=== PATIENT | male | born 1960 | race Caucasian/White ===

== ENCOUNTER 2016-10-13 16:55 | Emergency (ER) | payer OTHER ==
[~2016-10-13 16:55] MED LIST: HYDROmorphONE/DILAUDID 1 MG/ML SYR IVP ONE
[2016-10-13] MEDS ORDERED: ONDANSETRON 4 MG/2 ML VIAL ONE (17:29)
[2016-10-13] MEDS ORDERED: HYDROmorphONE/DILAUDID 1 MG/ML SYR ONE (17:29)
[2016-10-13] MEDS ORDERED: NS 1,000 ML IV ONE (17:34)
[2016-10-13] MEDS ORDERED: ONDANSETRON 4 MG/2 ML VIAL IVP ONE (17:34)
[2016-10-13] MEDS ORDERED: HYDROmorphONE/DILAUDID 1 MG/ML SYR IVP ONE ×2 (17:37→18:36)
[2016-10-13] MEDS ORDERED: KETOROLAC 30 MG/1 ML SDV IVP ONE (17:37)
[2016-10-13 17:39] LABS: % IMMATURE GRANULYOCYTES 0.3 % (0.0-1.1); ABSOLUTE IMMATURE GRANULOCYTES 0.03 10^3/uL (0.00-0.10); ADD DIFF? NO; ADD MORPH? NO; ADD SCAN? NO; ATYPICAL LYMPHOCYTE FLAG 10 (0-99); FRAGMENT RBC FLAG 0 (0-99); HEMATOCRIT 49.4 % (40.0-51.0); HEMOGLOBIN 17.3 g/dL (13.7-17.5); LEFT SHIFT FLG 0 (0-99); LIPEMIA HEMOLYSIS FLAG 90 (0-99); MEAN CELL HEMOGLOBIN 28.9 pg (27.9-34.1); MEAN CELL VOLUME 82.6 fL (81.5-99.8); MEAN PLATELET VOLUME 10.8 fL (8.7-11.7); PLATELET CLUMPS FLAG 0 (0-99); PLATELET COUNT 215 10^3/uL (150-400); RED BLOOD CELL COUNT 5.98 10^6/uL (4.40-6.38); RED CELL DISTRIBUTION WIDTH 11.6 % (11.5-15.2)
--- NOTE | 2016-10-13 17:39 | EDPHY ---
H & P Stated Complaint: right flank/abd pain - Personal History Current Tetanus Diphtheria and Acellular Pertussis (TDAP): Yes - Medical/Surgical History Hx Asthma: No Hx Chronic Respiratory Disease: No Hx Diabetes: No Hx Cardiac Disease: No Hx Renal Disease: No Hx Cirrhosis: No Hx Alcoholism: No Hx HIV/AIDS: No Hx Splenectomy or Spleen Trauma: No Other PMH: none - Social History Smoking Status: Never smoked Time Seen by Provider: 10/13/16 17:34 HPI/ROS: CHIEF COMPLAINT: "I think I have a kidney stone" HISTORY OF PRESENT ILLNESS: 56-year-old male with my prior history of nephrolithiasis all of which passed spontaneously complaining of sudden, sharp stabbing pain approximately 1 hour prior to arrival feeling similar to nephrolithiasis. No urinary abnormality. No testicular pain. No trauma. No vomiting. has previously seen Urology Dr. Beatriz Meza. REVIEW OF SYSTEMS: A ten point review of systems was performed and is negative with the exception of the items mentioned in the HPI PAST MEDICAL & SURGICAL HISTORY: Nephrolithiasis SOCIAL HISTORY:nonsmoker PHYSICAL EXAM (Prior to examination, patient consented to physical exam, hands were washed and my usual and customary physical exam procedures followed) 1) GENERAL: Well-developed, well-nourished, alert and oriented. Appears uncomfortable, having difficulty sitting still 2) HEAD: Normocephalic, atraumatic 3) HEENT: Pupils equal, round, reactive to light bilaterally. Sclera anicteric. 4) NECK: Full range of motion, no meningeal signs. 5) LUNGS: Clear auscultation bilaterally, no wheezes, no rhonchi, no retractions. 6) HEART: Regular rate and rhythm, no murmur, no heave, no gallop. 7) ABDOMEN: No guarding, no rebound, no focal tenderness, negative McBurney's, negative Power's, negative Rovsing's, negative peritoneal sign, 8) MUSCULOSKELETAL: Moving all extremities, no focal areas of tenderness, no obvious trauma. No peripheral edema or discoloration. 9) BACK: No CVA tenderness. 10) SKIN: No rash, no petechiae. 11) Psychiatric: Patient is oriented X 3, there is no agitation. DIFFERENTIAL DIAGNOSIS: [ in no particular include but limited to nephrolithiasis, pyelonephritis, appendicitis (Saw Schultz) Constitutional: Initial Vital Signs Temperature (C) 36.3 C 10/13/16 17:01 Heart Rate 77 10/13/16 17:01 Respiratory Rate 16 10/13/16 17:01 Blood Pressure 167/123 H 10/13/16 17:01 O2 Sat (%) 97 10/13/16 17:01 O2 Delivery Mode Room Air Allergies/Adverse Reactions: bacitracin [From Neosporin] Allergy (Verified 09/29/11 12:43) bacitracin zinc [From Neosporin] Allergy (Verified 09/29/11 12:43) benzalkonium chloride [From Neosporin] Allergy (Verified 09/29/11 12:43) gramicidin D [From Neosporin] Allergy (Verified 09/29/11 12:43) neomycin sulfate [From Neosporin] Allergy (Verified 09/29/11 12:43) polymyxin B [From Neosporin] Allergy (Verified 09/29/11 12:43) polymyxin B sulfate [From Neosporin] Allergy (Verified 09/29/11 12:43) Home Medications: Medication Instructions Recorded ZOLPIDEM TARTRATE [AMBIEN CR] 09/29/11 Celebrex 10/13/16 Hydrocodone/APAP 5/325 [[employer] 1 tab PO Q6 PRN #15 tab 10/13/16 5/325 (RX)] Ondansetron Odt [Zofran Odt] 4 mg PO Q4PRN PRN #10 tab 10/13/16 Tamsulosin HCl [Flomax] 0.4 mg PO DAILY #7 cap 10/13/16 Medical Decision Making - Diagnostics Imaging: Discussed imaging studies w/ joint cutter Radiologist - Diagnostics Imaging Results: Imaging Impressions Abdomen/Pelvis CT 10/13/16 17:37 Impression: 1. 2 mm calculus at the right UVJ with mild right-sided hydronephrosis. 2. 2 mm nonobstructive calculus mid to lower left kidney. Findings discussed with aSw Shcultz PAC at 18:25 hour, 10/13/2016. Attention: This CT examination is specifically designed to evaluate patients who are clinically suspected of having acute obstructive uropathy. This examination does not use radiographic contrast, and as such, provides only a limited evaluation of the abdomen, pelvis and retroperitoneum. If there is further clinical suspicion for pathological conditions other than obstructive uropathy, a complete CT evaluation of the abdomen and pelvis utilizing intravenous, oral, and rectal contrast should be considered. Images reviewed by myself (Saw Schultz) ED Course/Re-evaluation: 6:34 p.m.: Re-evaluation. Discussed his imaging results. His pain is returning. Will administer further analgesia and reassess His pain is controlled. Have offered admission however he thinks he can be discharged. Plan will be follow up with his urologist Dr. Beatriz Meza. (Saw Schultz) The patient was evaluated and managed by the physician's assistant chief nursing officer. My cosignature indicates that I reviewed the chart and I agree with the findings and plan of care as documented. I am the secondary supervising physician. ( Rose Marie Renee) - Data Points Laboratory Results: Laboratory Results 10/13/16 17:30 10/13/16 17:30 10/13/16 10/13/16 10/13/16 17:30 17:30 17:05 WBC 10.79 10^3/uL H 10^3/uL (3.80-9.50) RBC 5.98 10^6/uL 10^6/uL (4.40-6.38) Hgb 17.3 g/dL g/dL (13.7-17.5) Hct 49.4 % % (40.0-51.0) MCV 82.6 fL fL (81.5-99.8) MCH 28.9 pg pg (27.9-34.1) MCHC 35.0 g/dL g/dL (32.4-36.7) RDW 11.6 % % (11.5-15.2) Plt Count 215 10^3/uL 10^3/uL (150-400) MPV 10.8 fL fL (8.7-11.7) Neut % (Auto) 65.6 % % (39.3-74.2) Lymph % (Auto) 24.2 % % (15.0-45.0) Porter % (Auto) 7.5 % % (4.5-13.0) Eos % (Auto) 1.6 % % (0.6-7.6) Baso % (Auto) 0.8 % % (0.3-1.7) Nucleat RBC Rel Count 0.0 % % (0.0-0.2) Absolute Neuts (auto) 7.08 10^3/uL H 10^3/uL (1.70-6.50) Absolute Lymphs (auto) 2.61 10^3/uL 10^3/uL (1.00-3.00) Absolute Monos (auto) 0.81 10^3/uL H 10^3/uL (0.30-0.80) Absolute Eos (auto) 0.17 10^3/uL 10^3/uL (0.03-0.40) Absolute Basos (auto) 0.09 10^3/uL 10^3/uL (0.02-0.10) Absolute Nucleated RBC 0.00 10^3/uL 10^3/uL (0-0.01) Immature Gran % 0.3 % % (0.0-1.1) Immature Gran # 0.03 10^3/uL 10^3/uL (0.00-0.10) Sodium 141 mEq/L mEq/L (134-144) Potassium 3.7 mEq/L mEq/L (3.5-5.2) Chloride 101 mEq/L mEq/L (97-110) Carbon Dioxide 27 mEq/l mEq/l (22-31) Anion Gap 13 mEq/L mEq/L (8-16) BUN 18 mg/dL mg/dL (7-23) Creatinine 1.2 mg/dL mg/dL (0.7-1.3) Estimated GFR > 60 Glucose 119 mg/dL H mg/dL (70-100) Calcium 9.8 mg/dL mg/dL (8.5-10.4) Urine Color YELLOW Urine Appearance HAZY Urine pH 5.0 (5.0-7.5) Ur Specific Holmen 1.026 (1.002-1.030) Urine Protein 1+ H (NEGATIVE) Urine Ketones TRACE H (NEGATIVE) Urine Blood 3+ H (NEGATIVE) Urine Nitrate NEGATIVE (NEGATIVE) Urine Bilirubin NEGATIVE (NEGATIVE) Urine Urobilinogen NEGATIVE EU EU (0.2-1.0) Ur Leukocyte Esterase NEGATIVE (NEGATIVE) Urine RBC 50-182 /hpf H /hpf (0-3) Urine WBC 1-3 /hpf /hpf (0-3) Ur Epithelial Cells TRACE /lpf /lpf (NONE-1+) Urine Mucus 2+ /lpf H /lpf (NONE-1+) Urine Glucose NEGATIVE (NEGATIVE) Medications Given: Discontinued Medications Hydromorphone HCl (Dilaudid) 1 mg IVP EDNOW ONE Stop: 10/13/16 08:01 Last Admin: 10/13/16 17:35 Dose: 1 mg Hydromorphone HCl (Dilaudid) 1 mg IVP EDNOW ONE Stop: 10/13/16 17:38 Last Admin: 10/13/16 17:43 Dose: 1 mg Sodium Chloride (Ns) 1,000 mls @ 0 mls/hr IV ONCE ONE PRN Reason: Wide Open Stop: 10/13/16 17:35 Last Admin: 10/13/16 17:36 Dose: 1,000 mls Ketorolac Tromethamine (Toradol) 30 mg IVP EDNOW ONE Stop: 10/13/16 17:38 Last Admin: 10/13/16 17:43 Dose: 30 mg Ondansetron HCl (Zofran) 4 mg IVP EDNOW ONE Stop: 10/13/16 17:35 Last Admin: 10/13/16 17:36 Dose: 4 mg Departure - Departure Disposition: Home, Routine, Self-Care Clinical Impression: Right ureterolithiasis Condition: Good Instructions: Kidney Stones (ED) Referrals: Karen Chung MD [Medical Doctor] - 1-2 days without fail Prescriptions: Hydrocodone/APAP 5/325 [[employer] 5/325 (RX)] 1 tab PO Q6 PRN #15 tab PRN Reason: Pain, Severe Ondansetron Odt [Zofran Odt] 4 mg PO Q4PRN PRN #10 tab PRN Reason: Nausea Tamsulosin HCl [Flomax] 0.4 mg PO DAILY #7 cap
[2016-10-13 17:44] LABS: COLOR YELLOW; LEUKOCYTE ESTERASE,URINE NEGATIVE (NEGATIVE); NITRITE,URINE NEGATIVE (NEGATIVE)
[2016-10-13 17:56] LABS: MUCUS 2+ /lpf (NONE-1+); RBC,URINE 50-182 /hpf (0-3)
[2016-10-13 18:06] LABS: ANION GAP 13 mEq/L (8-16); CALCIUM 9.8 mg/dL (8.5-10.4); CARBON DIOXIDE 27 mEq/l (22-31); CHLORIDE 101 mEq/L (97-110); CREATININE 1.2 mg/dL (0.7-1.3); GLOMERULAR FILTRATION RATE > 60; GLUCOSE 119 mg/dL (70-100); POTASSIUM 3.7 mEq/L (3.5-5.2); SODIUM 141 mEq/L (134-144)
[2016-10-13] MEDS ORDERED: TAMSULOSIN HCL 0.4 MG CAP PO ONE (18:36)
[2016-10-13 19:01] VITALS: RESP 18
[2016-10-13 19:41] VITALS: BP 158/92; PULSE 66; TEMP 98.2; O2SAT 93
== END 2016-10-13 19:40 | disposition home or self-care (01) ==
DX: N20.1 Calculus of ureter (principal)
CPT/HCPCS: 96374; J1170; J1885; J2405